=== PATIENT | male | born 1990 | race Caucasian/White ===

== ENCOUNTER 2020-06-30 15:36 | Emergency (ER) | payer OTHER ==
[~2020-06-30] VITALS: Ht 167.6 cm; Wt 86.2 kg
[2020-06-30 15:44] VITALS: BP_SYST 132
[2020-06-30 16:15] VITALS: BP_SYST 132
== END 2020-06-30 16:16 | disposition home or self-care (01) ==
LOC: SED 15:36
DX: F41.9 Anxiety disorder, unspecified (principal); R20.2 Paresthesia of skin; F10.229 Alcohol dependence with intoxication, unspecified
CPT/HCPCS: 99283